=== PATIENT | male | born 1945 | race Caucasian/White ===

== ENCOUNTER 2017-09-19 16:19 | Emergency (ER) | payer MEDICARE, BC ==
[~2017-09-19] VITALS: Ht 180.3 cm; Wt 90.7 kg
[~2017-09-19 16:19] MED LIST: BUSPIRONE PO; HYDROCODON-ACE1 EAC9 PO; HYDROCODONE-AP1 EA23; RANITIDINE HCL150 MG PO; TYLENOL WITH C1 EACH PO; ULTRAM 50MG50 MG PO; Z PROPRANOLOL HCL PO; Z.0.LEVOTHYROXINE125 PO; Z.0.PAROXETINE HCL20 PO; Z.0.POTASSIUM CITR10 PO; Z.0.SIMVASTATIN40 MG PO; Z.0.SOMA350 MG PO
[2017-09-19] MEDS ORDERED: CLINDAMYCIN PHOS 600 MG/ 4 ML VIAL IM ONE (16:30)
[2017-09-19] MEDS ORDERED: HYDROCODONE/APAP 10MG-325MG TAB PO ONE (17:00)
[2017-09-19 18:42] VITALS: BP 196/91
== END 2017-09-19 18:45 | disposition home or self-care (01) ==
LOC: ER 16:19
DX: K04.7 Periapical abscess without sinus (principal); K02.9 Dental caries, unspecified
CPT/HCPCS: 99282

== ENCOUNTER 2017-09-20 00:45 | Emergency (ER) | payer MEDICARE, BC ==
[~2017-09-20] VITALS: Ht 180.3 cm; Wt 90.7 kg
== END 2017-09-20 01:20 | disposition home or self-care (01) ==
LOC: ER 00:45
DX: K02.9 Dental caries, unspecified (principal); K04.7 Periapical abscess without sinus
CPT/HCPCS: 99282

== ENCOUNTER → 2018-12-09 | Day surgery (SDC) | payer MEDICARE, BC ==
[2018-12-08 09:19] LABS: BASOPHILS % 0.4 % (0.0-1.0); EOSINOPHILS # (AUTO) 0.1 (0.0-0.4); EOSINOPHILS % 1.3 % (0.0-6.0); HEMATOCRIT 45.3 % (38.2-49.6); HEMOGLOBIN 15.4 g/dL (14.0-18.0); LYMPHOCYTES % 25.6 % (18.0-39.1); MEAN CORPUSCULAR HEMOGLOBIN 31.3 pg (28-32); MEAN CORPUSCULAR VOLUME 92.1 fL (81-99); MONOCYTES # (AUTO) 0.6 (0.2-0.8); MONOCYTES % 8.1 % (4.4-11.3); NEUTROPHILS # (AUTO) 4.9 (2.1-6.9); NEUTROPHILS % 64.3 % (38.7-80.0); PLATELET COUNT 187 x10e3/uL (140-360); RED BLOOD COUNT 4.92 x10e6/uL (4.3-5.7); RED CELL DISTRIBUTION WIDTH 12.6 % (11.7-14.4)
[2018-12-08 09:23] LABS: INR 0.94; PROTHROMBIN TIME 13.1 seconds (11.9-14.5)
[2018-12-08 09:24] LABS: PARTIAL THROMBOPLASTIN TIME 33.1 seconds (23.8-35.5)
[2018-12-08 09:34] LABS: ALANINE AMINOTRANSFERASE 40 IU/L (0-55); ALBUMIN 3.9 g/dL (3.5-5.0); ALBUMIN/GLOBULIN RATIO 1.1 (0.8-2.0); ALKALINE PHOSPHATASE 64 IU/L (40-150); ANION GAP 12.2 mmol/L (8-16); BLOOD UREA NITROGEN 16 mg/dL (7-26); BUN/CREATININE RATIO 14 (6-25); CALCIUM 9.7 mg/dL (8.4-10.2); CARBON DIOXIDE 27 mmol/L (22-29); CHLORIDE 103 mmol/L (98-107); CREATININE, SERUM 1.13 mg/dL (0.72-1.25); EST GLOMERULAR FILTRATION RATE > 60 ML/MIN (60-); GLUCOSE 114 mg/dL (74-118); POTASSIUM 4.2 mmol/L (3.5-5.1); SODIUM 138 mmol/L (136-145)
--- NOTE | 2018-12-08 11:06 | Diagnostic Imaging Report ---
EXAM: CHEST 2 VIEWS DATE: 12/08/2018 8:47 AM INDICATION: Preop circumcision COMPARISON: None FINDINGS: Lines and tubes: None Heart size normal. No focal pulmonary opacity, pleural effusion or pneumothorax. Upper abdomen unremarkable. No acute bony abnormality. Cervical spine fusion hardware noted. There are degenerative changes in the thoracic spine with disc space narrowing and partial fusion, possibly congenital, of several lower thoracic vertebrae. IMPRESSION: No evidence for acute disease. Signed by: Dr. Moises Santos M.D. on 12/08/2018 11:03 AM
[~2018-12-09] MED LIST changes: +ASPIR 8181 MG PO; +BUPIVACAINE 0.25% 30ML SDV INJ ONE; +CEFOXITIN 1GM/ D5W 50ML 50 ML IV ONE; +CO Q-1010 MG PO; +CYMBALTA30 MG PO; +DEXAMETHASONE SOD PHOS INJ 4 MG/ML VIAL ONE; +FENTANYL CITRATE/PF 100MCG/2 ML INJ ONE; +FLOMAX0.4 MG PO; +GABAPENTIN400 MG PO; +HYDROMORPHONE 2MG/ML 2 MG/ML ML ONE; +KEFLEX500 MG PO; +LIDOCAINE HCL 1% LOCAL INJ 20 ML VIAL ONE; +LIDOCAINE HCL 2% LOCAL INJ 5 ML SDV VIAL INJ ONE; +LUTEIN6 MG PO; +MIDAZOLAM HCL 2 MG/2 ML VIAL ONE; +MULTI-VITAMIN1 EACH PO; +NEOSTIGMINE 1 MG/ML 10ML VIAL ONE; +ONDANSETRON HCL INJ 2MG/ML 2ML 2 MG/ML VIAL ONE; +PANTOPRAZOLE SO40 MG PO; +PROPOFOL IV EMULSION 10 MG/ML 20 ML VIAL ONE; +PROPRANOLOL HCL80 MG PO; +SEVOFLURANE INHAL SOLN 250 ML PEN BTL ONE
--- OUTSIDE RECORDS SUMMARY | 2018-12-09 11:33 | XMS REPORT ---
Author Author [facility] Address Unknown Phone Unavailable Care Team Providers Care Manager Supply Name Role Phone MINE AVILEZ Unavailable Unavailable Problems This patient has no known problems. Allergies, Adverse Reactions, Alerts This patient has no known allergies or adverse reactions. Medications This patient has no known medications. Results Test Description Test Time Test Comments Text Results Atomic Results Result Comments CHEST 2 VIEWS 2018-12-08 11:00:00 [place] [address] Patient Name: KOTA MCNEILL MR #: [id number] : 1945 Age/Sex: 73/M Req #: [id number] Adm Physician: Ordered by: MINE AVILZE MD Report #: [id number] Location: OR Room/Bed: Procedure: [id number] DX/CHEST 2 VIEWS Exam Date: 12/08/18 Exam Time: 15 REPORT STATUS: Signed EXAM: CHEST 2 VIEWS DATE: 12/08/2018 8:47 AM BRIJESH CATION: Preop circumcision COMPARISON: None FINDINGS: Lines and tubes: None Heart size normal. No focal pulmonary opacity, pleural effusion or pneumothorax. Upper abdomen unremarkable. No acute bony abnormality. Cervical spine fusion hardware noted. There are degenerative changes in the thoracic spine with disc space narrowing and partial fusion, possibly congenital, of several lower thoracic vertebrae. IMPRESSION: No evidence for acute disease. Signed by: Dr. Monica Mason M.D. on 12/08/2018 11:03 AM Dictated By: MONICA MASON MD 110 Transcribed By: TONY on 12/08/181102 COPY TO: MINE AVILEZ MD
[2018-12-09 15:00] VITALS: BP 127/72
--- NOTE | 2018-12-09 19:28 | Operative Report ---
DATE OF PROCEDURE: 12/09/2018 SURGEON: Yaya Mcmahon MD PREOPERATIVE DIAGNOSIS: Phimosis. POSTOPERATIVE DIAGNOSIS: Phimosis. OPERATION PERFORMED: Adult circumcision. ANESTHESIA: General. INDICATIONS: This patient is a 73-year-old white male, who has had extreme difficulties recently retracting his foreskin. His foreskin has become cracked and sometimes bleeds. For further details, please refer to the history and physical. The procedure was done in following fashion. PROCEDURE IN DETAIL: The patient was taken to the operating room, placed under general anesthesia, and dressed and draped with Hibiclens in the usual fashion. A sleeve circumcision was performed. First, I marked out the foreskin on the proximal side with a marking pen so that I would not take off too much skin and then the first circumferential incision was made with a scalpel. Once this was accomplished, I then retracted the foreskin and did a frenulectomy because I thought that would help improve the quality of his erections should he have any postoperatively. This was done by first passing a hemostat beneath the frenulum and then tying off the proximal end and the distal end with a free tie of 3-0 chromic and then dividing the frenulum. Once this was accomplished, I then marked off the distal end of the sleeve taking care to avoid removing too much tissue. I then used a scalpel to complete the distal end of the sleeve. Once this was accomplished, hemostats were placed proximally and distally in the 12 o'clock position and then I divided the prepuce with a scalpel. I then dissected away the prepuce with Metzenbaum dissection using traction and countertraction taking care to avoid injury to urethra. Once the sleeve was removed, hemostasis was maintained with electrocautery on the bleeding vessels with a hemostat and then used electrocautery with the electrocautery set at 24 coagulation. Care again was taken to avoid doing a direct Bovie over the urethra. Once hemostasis appeared to be good, the wound was again irrigated with sterile water and reinspected for hemostasis. I then closed the skin in a four quadrant fashion using interrupted 3-0 chromic. A penile block was then made circumferentially using 0.4% Marcaine circumferentially around the base of the penis. Triple antibiotic ointment and iodoform dressing were applied. The patient tolerated the procedure well and left the operating in good condition. There will be no sex for two weeks. He can wash the wound off with soap and water in the morning. No work for the next two weeks. He is being sent home on tramadol for pain and Keflex 500 mg one p.o. four times daily, #40. Yaya Mcmahon MD RAJWINDER/MODL /[id number]
== END | disposition home or self-care (01) ==
LOC: OR 11:00
PROVIDERS: ATTEND Urology
DX: N47.1 Phimosis (principal); N47.7 Other inflammatory diseases of prepuce; N40.1 Benign prostatic hyperplasia with lower urinary tract symptoms; R39.12 Poor urinary stream; G89.29 Other chronic pain; M19.90 Unspecified osteoarthritis, unspecified site; E03.9 Hypothyroidism, unspecified; K21.9 Gastro-esophageal reflux disease without esophagitis; K64.4 Residual hemorrhoidal skin tags; I49.3 Ventricular premature depolarization; I10 Essential (primary) hypertension; E78.00 Pure hypercholesterolemia, unspecified; M51.37 Other intervertebral disc degeneration, lumbosacral region; F41.0 Panic disorder [episodic paroxysmal anxiety]; Z88.2 Allergy status to sulfonamides; Z91.041 Radiographic dye allergy status; Z91.040 Latex allergy status; Z01.810 Encounter for preprocedural cardiovascular examination; Z01.812 Encounter for preprocedural laboratory examination; Z01.818 Encounter for other preprocedural examination; Z79.82 Long term (current) use of aspirin; Z68.32 Body mass index [BMI] 32.0-32.9, adult; Z87.442 Personal history of urinary calculi
CPT/HCPCS: 36415; 54161; 71046; 80053; 85025; 85610; 85730; 88304; 93005; J1100; J1170; J2001; J2250; J2405; J2704; J2710

== ENCOUNTER → 2019-01-02 | Day surgery (SDC) | payer MEDICARE, BC ==
[2018-12-30 14:58] LABS: BASOPHILS % 0.4 % (0.0-1.0); EOSINOPHILS # (AUTO) 0.1 (0.0-0.4); EOSINOPHILS % 1.7 % (0.0-6.0); HEMATOCRIT 44.6 % (38.2-49.6); HEMOGLOBIN 15.6 g/dL (14.0-18.0); LYMPHOCYTES % 27.7 % (18.0-39.1); MEAN CORPUSCULAR HEMOGLOBIN 31.6 pg (28-32); MEAN CORPUSCULAR VOLUME 90.3 fL (81-99); MONOCYTES # (AUTO) 0.5 (0.2-0.8); MONOCYTES % 7.5 % (4.4-11.3); NEUTROPHILS # (AUTO) 4.4 (2.1-6.9); NEUTROPHILS % 62.1 % (38.7-80.0); PLATELET COUNT 205 x10e3/uL (140-360); RED BLOOD COUNT 4.94 x10e6/uL (4.3-5.7); RED CELL DISTRIBUTION WIDTH 12.2 % (11.7-14.4)
[2018-12-30 15:26] LABS: ANION GAP 11.3 mmol/L (8-16); BLOOD UREA NITROGEN 14 mg/dL (7-26); BUN/CREATININE RATIO 12 (6-25); CALCIUM 9.6 mg/dL (8.4-10.2); CARBON DIOXIDE 26 mmol/L (22-29); CHLORIDE 102 mmol/L (98-107); CREATININE, SERUM 1.18 mg/dL (0.72-1.25); EST GLOMERULAR FILTRATION RATE > 60 ML/MIN (60-); GLUCOSE 108 mg/dL (74-118); POTASSIUM 4.3 mmol/L (3.5-5.1); SODIUM 135 mmol/L (136-145)
[~2019-01-02] MED LIST changes: +ACETAMINOPHEN 1000 MG/100 ML 100 ML IV ONE; -BUPIVACAINE 0.25% 30ML SDV INJ ONE; +BUPIVACAINE 0.25%/EPI 30ML SDV INJ ONE; -CEFOXITIN 1GM/ D5W 50ML 50 ML IV ONE; +GINKGO BILOBA40 M1 PO; +GLYCOPYRROLATE INJ 1MG/ 5 ML SYR ONE; -HYDROMORPHONE 2MG/ML 2 MG/ML ML ONE; +LEVOFLOXACIN 500MG/D5W 100ML 100 ML IV ONE; +LIDOCAINE HCL (LTA) 4 ML SOLN ONE; -LIDOCAINE HCL 1% LOCAL INJ 20 ML VIAL ONE; -NEOSTIGMINE 1 MG/ML 10ML VIAL ONE; +NEOSTIGMINE 5 MG/5ML SYR ONE; +ROCURONIUM BROMIDE 10 MG/ML 5ML VIAL ONE
[2019-01-02 16:15] VITALS: BP 119/64
--- NOTE | 2019-02-23 15:28 | Operative Report ---
DATE OF PROCEDURE: 01/02/2019 SURGEON: Bryson Padron MD PREOPERATIVE DIAGNOSIS: Ventral hernia. POSTOPERATIVE DIAGNOSIS: Ventral hernia. OPERATION PERFORMED: Repair of ventral hernia with mesh. [employer]IVER: MORRO Carpenter. ANESTHESIA: General. COMPLICATIONS: None. ESTIMATED BLOOD LOSS: Minimal. DESCRIPTION OF PROCEDURE: With the patient lying in bed in the supine position under good general endotracheal anesthesia, the abdomen was prepped with Betadine solution and draped in the usual manner. An incision was made over the palpable bulge in the mid abdomen and carried down through the subcutaneous tissue and immediately a hernia sac was encountered. The hernia sac was then dissected in all directions with normal fascia all the way around. The hernia sac was then opened and the contents were reduced back to the intraabdominal cavity. The excess of the hernia sac was resected. Examination revealed no other defects in the area. A large Ventralex patch was then placed through the hernia defect and deployed without any difficulty and the fascia was then closed transversely with interrupted sutures of 0 Ethibond anchoring the mesh with the interrupted fascial closure. After this was done, the whole area was thoroughly irrigated. Perfect hemostasis was ascertained. The fascia was then infiltrated with 0.25% Marcaine. The skin was also infiltrated with 0.25% Marcaine. Subcutaneous tissue was approximated with 3-0 Vicryl and the skin was closed with clips. A dressing was applied. The sponge, lap, and needle count were correct. The patient tolerated the procedure well and returned to the recovery room in stable condition. Bryson Padron MD JLR/MODL /[id number]
== END | disposition home or self-care (01) ==
LOC: OR 08:49
PROVIDERS: ATTEND Surgery
DX: K43.9 Ventral hernia without obstruction or gangrene (principal); E03.9 Hypothyroidism, unspecified; K28.9 Gastrojejunal ulcer, unspecified as acute or chronic, without hemorrhage or perforation; K21.9 Gastro-esophageal reflux disease without esophagitis; I10 Essential (primary) hypertension; N40.0 Benign prostatic hyperplasia without lower urinary tract symptoms; F41.9 Anxiety disorder, unspecified; Z88.2 Allergy status to sulfonamides; Z88.1 Allergy status to other antibiotic agents; Z91.041 Radiographic dye allergy status; Z91.040 Latex allergy status; Z01.812 Encounter for preprocedural laboratory examination; Z79.82 Long term (current) use of aspirin; Z87.891 Personal history of nicotine dependence
CPT/HCPCS: 36415; 49560; 49568; 80048; 85025; C1781; J0131; J1100; J1956; J2001; J2250; J2405; J2704; J3490; J3010

== ENCOUNTER → 2019-11-30 | Outpatient (CLI) | payer MEDICARE, BC ==
[~2019-11-30] MED LIST changes: -ACETAMINOPHEN 1000 MG/100 ML 100 ML IV ONE; -BUPIVACAINE 0.25%/EPI 30ML SDV INJ ONE; -DEXAMETHASONE SOD PHOS INJ 4 MG/ML VIAL ONE; -FENTANYL CITRATE/PF 100MCG/2 ML INJ ONE; -GLYCOPYRROLATE INJ 1MG/ 5 ML SYR ONE; -LEVOFLOXACIN 500MG/D5W 100ML 100 ML IV ONE; -LIDOCAINE HCL (LTA) 4 ML SOLN ONE; -LIDOCAINE HCL 2% LOCAL INJ 5 ML SDV VIAL INJ ONE; -MIDAZOLAM HCL 2 MG/2 ML VIAL ONE; -NEOSTIGMINE 5 MG/5ML SYR ONE; -ONDANSETRON HCL INJ 2MG/ML 2ML 2 MG/ML VIAL ONE; -PROPOFOL IV EMULSION 10 MG/ML 20 ML VIAL ONE; -ROCURONIUM BROMIDE 10 MG/ML 5ML VIAL ONE; -SEVOFLURANE INHAL SOLN 250 ML PEN BTL ONE
--- NOTE | 2019-11-30 09:46 | Diagnostic Imaging Report ---
CT of the abdomen and pelvis, without contrast. History: Hematuria. Comparison: None available. Technique: Multidetector CT scanning of the abdomen and pelvis was performed from the level of the lung bases to the inferior pubic rami without the use of contrast material. Coronal and sagittal multiplanar reformations were obtained. RADIATION DOSE: Total DLP: 775.96 mGy*cm Dose modulation, iterative reconstruction, and/or weight based adjustment of the mA/kV was utilized to reduce the radiation dose to as low as reasonably achievable. FINDINGS: The visualized lungs are unremarkable. The imaged portion of the heart demonstrates no significant abnormalities. The liver is normal in attenuation on this noncontrast enhanced examination. The gallbladder is unremarkable. There is no evidence for radiopaque stones, wall thickening, or pericholecystic fluid. There is no intra or extrahepatic biliary ductal dilatation. The stomach, spleen, pancreas, and bilateral adrenal glands demonstrate an unremarkable noncontrast appearance. The kidneys are normal in size and location. There is no evidence for nephrolithiasis or hydronephrosis. The ureters are normal in course and caliber without evidence for radiopaque stone. The partially distended urinary bladder demonstrates no significant abnormalities. The prostate contains dystrophic calcifications but is otherwise grossly unremarkable. The abdominal aorta is normal course and caliber. The IVC is normal in caliber. Please note evaluation the bowel is limited without the use of enteric contrast material. The visualized loops of small and large bowel demonstrate no evidence of obstruction or inflammation. There is no ascites or intraperitoneal free air. There is mild stranding noted within the midline anterior abdominal wall which likely reflect sequela of prior hernia repair. There is a small fat-containing left inguinal hernia present. There are degenerative changes of the lumbosacral spine, most prominent at L5-S1. There is no evidence for acute fracture or destructive process. The extraperitoneal soft tissues are unremarkable. IMPRESSION: No acute abdominopelvic process identified on this noncontrast enhanced CT. Specifically, no evidence for nephrolithiasis or obstructive uropathy. Signed by: Dr. Onel Amaro MD on 11/30/2019 9:43 AM
== END ==
LOC: CT 08:34
PROVIDERS: ATTEND Urology
DX: N20.0 Calculus of kidney (principal); R31.0 Gross hematuria
CPT/HCPCS: 74176

== ENCOUNTER 2021-06-09 08:10 | Emergency (ER) | payer MEDICARE, BC, OTHER ==
[~2021-06-09] VITALS: Ht 180.3 cm; Wt 90.7 kg
[2021-06-09] MEDS ORDERED: FENTANYL CITRATE/PF 100MCG/2 ML INJ IJ ONE (08:45)
[2021-06-09] MEDS ORDERED: ULTRAM50 MG PO (09:36)
[2021-06-09 09:49] VITALS: BP 123/71
== END 2021-06-09 09:52 | disposition home or self-care (01) ==
LOC: ER 08:39
DX: M25.512 Pain in left shoulder (principal); M25.511 Pain in right shoulder; S46.092A Other injury of muscle(s) and tendon(s) of the rotator cuff of left shoulder, initial encounter; S46.091A Other injury of muscle(s) and tendon(s) of the rotator cuff of right shoulder, initial encounter; W01.0XXA Fall on same level from slipping, tripping and stumbling without subsequent striking against object, initial encounter; Y93.01 Activity, walking, marching and hiking; Y92.89 Other specified places as the place of occurrence of the external cause; F41.0 Panic disorder [episodic paroxysmal anxiety]; Z87.19 Personal history of other diseases of the digestive system
CPT/HCPCS: 70450; 71045; 72125; 73030; 99283; J3010

== ENCOUNTER 2022-03-26 07:29 | Inpatient (IN) | payer MEDICARE, BC ==
[~2022-03-26] VITALS: Ht 180.3 cm; Wt 90.7 kg
[~2022-03-26 07:29] MED LIST changes: +ULTRAM50 MG PO
[2022-03-26] MEDS ORDERED: SODIUM CHLORIDE 0.9% 1000ML 1,000 ML IV STA (07:47)
[2022-03-26 08:01] LABS: BASOPHILS % 0.3 % (0.0-1.0); EOSINOPHILS # (AUTO) 0.1 (0.0-0.4); EOSINOPHILS % 0.8 % (0.0-6.0); HEMATOCRIT 37.2 % (38.2-49.6); HEMOGLOBIN 12.5 g/dL (14.0-18.0); LYMPHOCYTES # (AUTO) 2.2 (1.0-3.2); LYMPHOCYTES % 25.2 % (18.0-39.1); MEAN CORPUSCULAR HEMOGLOBIN 31.8 pg (28-32); MEAN CORPUSCULAR HGB CONC 33.6 g/dL (31-35); MEAN CORPUSCULAR VOLUME 94.7 fL (81-99); MONOCYTES # (AUTO) 0.4 (0.2-0.8); MONOCYTES % 4.2 % (4.4-11.3); NEUTROPHILS # (AUTO) 6.1 (2.1-6.9); NEUTROPHILS % 68.9 % (38.7-80.0); PLATELET COUNT 254 x10e3/uL (140-360); RED BLOOD COUNT 3.93 x10e6/uL (4.3-5.7); RED CELL DISTRIBUTION WIDTH 13.2 % (11.7-14.4)
[2022-03-26 08:14] LABS: INR 0.98; PROTHROMBIN TIME 13.9 seconds (11.9-14.5)
[2022-03-26 08:15] LABS: PARTIAL THROMBOPLASTIN TIME 30.3 seconds (23.8-35.5)
[2022-03-26 08:21] LABS: ALANINE AMINOTRANSFERASE 18 IU/L (0-55); ALBUMIN 3.5 g/dL (3.5-5.0); ALBUMIN/GLOBULIN RATIO 1.1 (0.8-2.0); ALKALINE PHOSPHATASE 52 IU/L (40-150); ANION GAP 14.9 mmol/L (8-16); BLOOD UREA NITROGEN 45 mg/dL (7-26); BUN/CREATININE RATIO 46 (6-25); CALCIUM 9.2 mg/dL (8.4-10.2); CARBON DIOXIDE 24 mmol/L (22-29); CHLORIDE 106 mmol/L (98-107); CREATINE KINASE 19 IU/L (30-200); CREATININE, SERUM 0.97 mg/dL (0.72-1.25); GLUCOSE 202 mg/dL (74-118); LIPASE 43 U/L (8-78); MAGNESIUM 1.9 MG/DL (1.3-2.1); POTASSIUM 3.9 mmol/L (3.5-5.1); SODIUM 141 mmol/L (136-145)
[2022-03-26] MEDS ORDERED: ONDANSETRON HCL INJ 2MG/ML 2ML 2 MG/ML VIAL IV STA (08:39)
[2022-03-26] MEDS ORDERED: OCTREOTIDE ACETATE 0.05 MG/ML AMP IV STA (09:04)
[2022-03-26] MEDS ORDERED: OCTREOTIDE ACETATE 600 MCG in SODIUM CHLORIDE 0.9% 250ML 300 ML IV SCH (09:15)
[2022-03-26] MEDS ORDERED: ONDANSETRON HCL INJ 2MG/ML 2ML 2 MG/ML VIAL IV PRN (09:15)
[2022-03-26] MEDS: OCTREOTIDE ACETATE 500 MCG in SODIUM CHLORIDE 0.9% 250ML 249 ML IV SCH ×2 (09:47→20:00)
[2022-03-26] MEDS ORDERED: DEXTROSE 5% IV SCH (10:00)
[2022-03-26] MEDS ORDERED: OCTREOTIDE ACETATE IV SCH (10:00)
[2022-03-26 11:40] VITALS: BP 121/69
[2022-03-26 11:47] VITALS: BP 121/69
[2022-03-26 12:05] VITALS: BP 121/69
[2022-03-26] MEDS: SODIUM CHLORIDE 0.9% 1000ML 1,000 ML IV SCH ×2 (12:31→19:15)
[2022-03-26 12:33] LABS: BASOPHILS % 0.3 % (0.0-1.0); EOSINOPHILS # (AUTO) 0.1 (0.0-0.4); EOSINOPHILS % 0.5 % (0.0-6.0); HEMATOCRIT 33.4 % (38.2-49.6); HEMOGLOBIN 11.3 g/dL (14.0-18.0); LYMPHOCYTES # (AUTO) 2.5 (1.0-3.2); LYMPHOCYTES % 24.9 % (18.0-39.1); MEAN CORPUSCULAR HEMOGLOBIN 32.2 pg (28-32); MEAN CORPUSCULAR HGB CONC 33.8 g/dL (31-35); MEAN CORPUSCULAR VOLUME 95.2 fL (81-99); MONOCYTES # (AUTO) 0.7 (0.2-0.8); MONOCYTES % 6.5 % (4.4-11.3); NEUTROPHILS # (AUTO) 6.7 (2.1-6.9); PLATELET COUNT 202 x10e3/uL (140-360); RED BLOOD COUNT 3.51 x10e6/uL (4.3-5.7); RED CELL DISTRIBUTION WIDTH 13.3 % (11.7-14.4)
[2022-03-26] MEDS: GABAPENTIN 400 MG CAP PO SCH ×2 (15:30→20:39)
[2022-03-26] MEDS: BUSPIRONE HCL 5 MG TAB PO SCH ×2 (15:30→20:39)
[2022-03-26] MEDS ORDERED: TRAMADOL HCL 50 MG TAB PO PRN (15:45)
[2022-03-26 15:59] VITALS: BP 120/67
[2022-03-26 16:25] LABS: CREATINE KINASE 20 IU/L (30-200)
[2022-03-26 18:18] LABS: BASOPHILS % 0.4 % (0.0-1.0); EOSINOPHILS # (AUTO) 0.1 (0.0-0.4); EOSINOPHILS % 0.9 % (0.0-6.0); HEMATOCRIT 34.5 % (38.2-49.6); HEMOGLOBIN 11.2 g/dL (14.0-18.0); LYMPHOCYTES # (AUTO) 2.5 (1.0-3.2); LYMPHOCYTES % 28.8 % (18.0-39.1); MEAN CORPUSCULAR HEMOGLOBIN 31.5 pg (28-32); MEAN CORPUSCULAR HGB CONC 32.5 g/dL (31-35); MEAN CORPUSCULAR VOLUME 96.9 fL (81-99); MONOCYTES # (AUTO) 0.6 (0.2-0.8); MONOCYTES % 7.4 % (4.4-11.3); NEUTROPHILS # (AUTO) 5.3 (2.1-6.9); NEUTROPHILS % 61.7 % (38.7-80.0); PLATELET COUNT 157 x10e3/uL (140-360); RED BLOOD COUNT 3.56 x10e6/uL (4.3-5.7); RED CELL DISTRIBUTION WIDTH 13.5 % (11.7-14.4)
[2022-03-26 18:40] LABS: CREATINE KINASE 29 IU/L (30-200)
[2022-03-26 20:00] VITALS: BP 129/61
[2022-03-26] MEDS: SIMVASTATIN 20 MG TAB PO SCH (20:39)
[2022-03-26 20:54] VITALS: BP 129/61
[2022-03-26] MEDS ORDERED: ACETAMINOPHEN 325 MG TAB PO PRN (22:00)
[2022-03-26] MEDS: CYCLOBENZAPRINE HCL 10 MG TAB PO SCH (22:24)
[2022-03-26 23:25] LABS: % IRON SATURATION 29 % (15-50); IRON 90 ug/dL (65-175); TOTAL IRON BINDING CAPACITY 307 ug/dL (261-478); TRANSFERRIN 219 mg/dL (174-364)
[2022-03-27] VITALS: BP 135/60
[2022-03-27 04:00] VITALS: BP 106/67
[2022-03-27] MEDS: SODIUM CHLORIDE 0.9% 1000ML 1,000 ML IV SCH ×2 (05:15→15:33)
[2022-03-27 05:53] LABS: BASOPHILS % 0.5 % (0.0-1.0); EOSINOPHILS # (AUTO) 0.1 (0.0-0.4); EOSINOPHILS % 1.4 % (0.0-6.0); HEMATOCRIT 30.7 % (38.2-49.6); HEMOGLOBIN 10.4 g/dL (14.0-18.0); LYMPHOCYTES # (AUTO) 2.2 (1.0-3.2); LYMPHOCYTES % 33.6 % (18.0-39.1); MEAN CORPUSCULAR HEMOGLOBIN 31.6 pg (28-32); MEAN CORPUSCULAR HGB CONC 33.9 g/dL (31-35); MEAN CORPUSCULAR VOLUME 93.3 fL (81-99); MONOCYTES # (AUTO) 0.4 (0.2-0.8); MONOCYTES % 6.1 % (4.4-11.3); NEUTROPHILS # (AUTO) 3.7 (2.1-6.9); NEUTROPHILS % 57.6 % (38.7-80.0); PLATELET COUNT 180 x10e3/uL (140-360); RED BLOOD COUNT 3.29 x10e6/uL (4.3-5.7); RED CELL DISTRIBUTION WIDTH 13.3 % (11.7-14.4)
[2022-03-27] MEDS: OCTREOTIDE ACETATE 500 MCG in SODIUM CHLORIDE 0.9% 250ML 249 ML IV SCH ×2 (06:00→15:33)
[2022-03-27] MEDS: LEVOTHYROXINE SODIUM 125 MCG TAB PO SCH (06:00)
[2022-03-27] MEDS: CYCLOBENZAPRINE HCL 10 MG TAB PO SCH ×3 (06:00→21:04)
[2022-03-27 06:34] LABS: ANION GAP 12.3 mmol/L (8-16); CALCIUM 8.2 mg/dL (8.4-10.2); CREATININE, SERUM 0.83 mg/dL (0.72-1.25); POTASSIUM 4.3 mmol/L (3.5-5.1)
[2022-03-27 07:13] LABS: CREATINE KINASE 25 IU/L (30-200)
[2022-03-27 08:00] VITALS: BP 115/58
[2022-03-27] MEDS ORDERED: TAMSULOSIN HCL 0.4 MG CAP PO SCH (09:00)
[2022-03-27] MEDS ORDERED: MULTIVITAMINS/MINERALS TAB PO SCH (09:00)
[2022-03-27] MEDS ORDERED: PAROXETINE HCL 20 MG TAB PO SCH (09:00)
[2022-03-27] MEDS ORDERED: DULOXETINE HCL 30 MG DELAYED RELEASE PO SCH (09:00)
[2022-03-27] MEDS ORDERED: PROPRANOLOL HCL 60 MG ER CAP PO SCH (09:00)
[2022-03-27] MEDS: BUSPIRONE HCL 5 MG TAB PO SCH ×3 (09:14→21:03)
[2022-03-27] MEDS: GABAPENTIN 400 MG CAP PO SCH ×3 (09:15→21:04)
[2022-03-27] MEDS ORDERED: LIDOCAINE HCL 2% LOCAL INJ 5 ML SDV VIAL INJ ONE (15:28)
[2022-03-27] MEDS ORDERED: PROPOFOL IV EMULSION 10 MG/ML 20 ML VIAL ONE (15:28)
[2022-03-27] MEDS ORDERED: CYANOCOBALAMIN INJ 1,000 MCG/ML VIAL IM ONE (15:30)
[2022-03-27 16:22] VITALS: BP 141/71
[2022-03-27 18:21] LABS: BASOPHILS % 0.3 % (0.0-1.0); EOSINOPHILS # (AUTO) 0.1 (0.0-0.4); EOSINOPHILS % 1.6 % (0.0-6.0); HEMATOCRIT 33.5 % (38.2-49.6); HEMOGLOBIN 10.9 g/dL (14.0-18.0); LYMPHOCYTES # (AUTO) 1.7 (1.0-3.2); LYMPHOCYTES % 27.4 % (18.0-39.1); MEAN CORPUSCULAR HEMOGLOBIN 31.9 pg (28-32); MEAN CORPUSCULAR HGB CONC 32.5 g/dL (31-35); MONOCYTES # (AUTO) 0.2 (0.2-0.8); MONOCYTES % 3.7 % (4.4-11.3); NEUTROPHILS # (AUTO) 4.1 (2.1-6.9); NEUTROPHILS % 65.7 % (38.7-80.0); PLATELET COUNT 207 x10e3/uL (140-360); RED BLOOD COUNT 3.42 x10e6/uL (4.3-5.7); RED CELL DISTRIBUTION WIDTH 13.6 % (11.7-14.4)
[2022-03-27 20:00] VITALS: BP 129/71
[2022-03-27] MEDS: SIMVASTATIN 20 MG TAB PO SCH (21:04)
[2022-03-28] VITALS: BP 126/64
[2022-03-28] MEDS ORDERED: SODIUM CHLORIDE 0.9% 1000ML 1,000 ML ONE (00:48)
[2022-03-28] MEDS: SODIUM CHLORIDE 0.9% 1000ML 1,000 ML IV SCH (00:52)
[2022-03-28] MEDS: OCTREOTIDE ACETATE 500 MCG in SODIUM CHLORIDE 0.9% 250ML 249 ML IV SCH (01:24)
[2022-03-28] MEDS ORDERED: PANTOPRAZOLE SO40 MG PO (03:38)
[2022-03-28 04:00] VITALS: BP 126/67
[2022-03-28] MEDS: CYCLOBENZAPRINE HCL 10 MG TAB PO SCH (05:41)
[2022-03-28] MEDS: LEVOTHYROXINE SODIUM 125 MCG TAB PO SCH (05:41)
[2022-03-28 05:52] LABS: BASOPHILS % 0.4 % (0.0-1.0); EOSINOPHILS # (AUTO) 0.2 (0.0-0.4); HEMATOCRIT 32.1 % (38.2-49.6); HEMOGLOBIN 10.6 g/dL (14.0-18.0); LYMPHOCYTES % 26.2 % (18.0-39.1); MEAN CORPUSCULAR HEMOGLOBIN 31.8 pg (28-32); MEAN CORPUSCULAR VOLUME 96.4 fL (81-99); MONOCYTES # (AUTO) 0.5 (0.2-0.8); MONOCYTES % 6.1 % (4.4-11.3); NEUTROPHILS # (AUTO) 4.9 (2.1-6.9); NEUTROPHILS % 64.5 % (38.7-80.0); PLATELET COUNT 194 x10e3/uL (140-360); RED BLOOD COUNT 3.33 x10e6/uL (4.3-5.7); RED CELL DISTRIBUTION WIDTH 13.4 % (11.7-14.4)
[2022-03-28 07:55] VITALS: BP 146/80
[2022-03-28] MEDS ORDERED: CYANOCOBALAMIN INJ 1,000 MCG/ML VIAL IM SCH (09:00)
== END 2022-03-28 10:04 | disposition home or self-care (01) | DRG 368 ==
LOC: ER 07:40 → ERHOLD 09:09 → MED/SURG2 10:19 → OBSVTOIN 03-27 08:47
PROVIDERS: ADMIT Internal Medicine; ATTEND Internal Medicine
PROC: 0DB78ZX Excision of Stomach, Pylorus, Via Natural or Artificial Opening Endoscopic, Diagnostic (ICD-10-PCS; 2022-03-27)
PROC: 0DB68ZX Excision of Stomach, Via Natural or Artificial Opening Endoscopic, Diagnostic (ICD-10-PCS; 2022-03-27)
PROC: 0DB48ZX Excision of Esophagogastric Junction, Via Natural or Artificial Opening Endoscopic, Diagnostic (ICD-10-PCS; principal; 2022-03-27 14:17)
DX: K20.91 Esophagitis, unspecified with bleeding (principal); K29.71 Gastritis, unspecified, with bleeding; K22.70 Barrett's esophagus without dysplasia; I10 Essential (primary) hypertension; N40.0 Benign prostatic hyperplasia without lower urinary tract symptoms; F39 Unspecified mood [affective] disorder; K22.82 Esophagogastric junction polyp; Z88.8 Allergy status to other drugs, medicaments and biological substances; Z91.041 Radiographic dye allergy status; Z91.040 Latex allergy status; E03.9 Hypothyroidism, unspecified; D64.9 Anemia, unspecified; Z87.442 Personal history of urinary calculi
CPT/HCPCS: 0223U; 36415; 43239; 71045; 80048; 80053; 82270; 82550; 82553; 82607; 82746; 83540; 83690; 83735; 84466; 84484; 85025; 85045; 85610; 85730; 88305; 88312; 88342; 93005; 99284; G0378; J2001; J2353; J2354; J2405; J3420; J7030; J7050

== ENCOUNTER 2025-05-14 00:10 | Emergency (ER) | payer MEDICARE, OTHER ==
[~2025-05-14] VITALS: Ht 180.3 cm; Wt 90.7 kg
[2025-05-14 00:10] VITALS: TEMP 97.7
[2025-05-14] MEDS: ONDANSETRON HCL INJ 2MG/ML 2ML 2 MG/ML VIAL IV STA (00:58)
[2025-05-14 00:59] LABS: BASOPHILS % 0.2 % (0.0-1.0); EOSINOPHILS % 1.5 % (0.0-6.0); LYMPHOCYTES % 21.6 % (18.0-39.1); MONOCYTES % 4.2 % (4.4-11.3); NEUTROPHILS % 71.9 % (38.7-80.0); RED CELL DISTRIBUTION WIDTH 12.7 % (11.7-14.4)
[2025-05-14] MEDS: SODIUM CHLORIDE 0.9% 1000ML 1,000 ML IV ONE (00:59)
[2025-05-14] MEDS: CYCLOBENZAPRINE HCL 10 MG TAB PO ONE (01:00)
[2025-05-14 01:32] LABS: EST GLOMERULAR FILTRATION RATE 68.0 ML/MIN (>=60)
[2025-05-14 01:45] VITALS: PULSE 63; RESP 20
[2025-05-14] MEDS: KETOROLAC TROMETHAMINE 30 MG/ML VIAL IV STA (01:56)
[2025-05-14] MEDS ORDERED: CYCLOBENZAPRINE10 MG PO (02:26)
[2025-05-14] MEDS ORDERED: ONDANSETRON ODT4 MG PO (02:26)
[2025-05-14 02:39] VITALS: BP 165/76; PULSE 65; RESP 20; O2SAT 96
== END 2025-05-14 02:40 | disposition home or self-care (01) ==
LOC: ER 00:16
DX: R51.9 Headache, unspecified (principal); R11.2 Nausea with vomiting, unspecified; M54.2 Cervicalgia; I10 Essential (primary) hypertension; F41.0 Panic disorder [episodic paroxysmal anxiety]; Z87.19 Personal history of other diseases of the digestive system
CPT/HCPCS: 36415; 70450; 72125; 80053; 83690; 84484; 85025; 99284; J1885; J2405; J7030